=== PATIENT | female | born 1950 | race Caucasian/White ===

== ENCOUNTER 2017-09-01 08:56 | Emergency (ER) | payer MEDICARE ==
[~2017-09-01] VITALS: Ht 170.2 cm; Wt 79.8 kg
[~2017-09-01 08:56] MED LIST: ASPI-COR81 M1 PO; CHILDREN'S CHEW1 CT1 PO; ESCITALOPRAM20 MG PO; FISH OIL1000 MG PO; LOSARTAN POTAS100 MG PO; OMEPRAZOLE40 MG PO; QUETIAPINE FUM100 M2 PO; VITAMIN D1000 IU PO; XANAX 1MG TABLET1 MG PO
--- OUTSIDE RECORDS SUMMARY | 2017-09-01 09:00 | External Medical Summary Rpt | CCD ---
Demographics Preferred Language Syriac Marital Status Unknown Church Affiliation Unknown Race Unknown Ethnic Group Unknown Author Author , MARY HERNANDEZ Address Unknown Phone Immunization No patient found.
--- OUTSIDE RECORDS SUMMARY | 2017-09-01 09:00 | External Medical Summary Rpt | CCD ---
Author Author [employer] Organization [employer] Address Unknown Phone Unavailable Purpose Continuity of Care Document - through 2016
--- OUTSIDE RECORDS SUMMARY | 2017-09-01 09:00 | External Medical Summary Rpt | CCD ---
Author Author , MARY HERNANDEZ Address Unknown Phone [email or web address] Purpose Continuity of Care Document - 03-08-2017 through 2016 Results Labs Lab Lab Date Result Refere Interp Status Commen Order Detail nces retati t Range on Differential panel, method unspecified - (03-08-2017 08:38) LYMPH 58 % 10% - High complet 017 50% ed 08:38 Platele NORMAL complet ts 017 ed [Presen 08:38 ce] in Blood by Light microsc opy
--- OUTSIDE RECORDS SUMMARY | 2017-09-01 09:00 | External Medical Summary Rpt ---
Author Author [facility], MARY [employer] Organization [employer]ARY [employer] Address Unknown Phone Unavailable Results Comprehensive metabolic 2000 panel in Serum or Plasma Observa Value Referen Units Interpr Notes Date tion ce etation Range Albumin/G 1.1 - 1.8 No Normal No March 08 lobulin informati informati 2016 8:38 [Mass on in on in AM ratio] in source source Serum or data data Plasma Albumin 3.4 - 5.0 gm/dL Normal No March 08 [Mass/vol informati 2016 8:38 ume] in on in AM Serum or source Plasma data Alkaline 46 - 116 U/L High No March 08 phosphata informati 2016 8:38 se on in AM [Enzymati source c data activity/ volume] in Serum or Plasma Bilirubin 0.2 - 1.0 mg/dL Normal No March 08 .total informati 2016 8:38 [Mass/vol on in AM ume] in source Serum or data Plasma Urea 7 - 18 mg/dL High No March 08 nitrogen informati 2016 8:38 [Mass/vol on in AM ume] in source Serum or data Plasma Calcium 8.5 - mg/dL Normal No March 08 [Mass/vol 10.1 informati 2016 8:38 ume] in on in AM Serum or source Plasma data Chloride 98 - 107 mmoL/L High No March 08 [Moles/vo informati 2016 8:38 lume] in on in AM Serum or source Plasma data Carbon 21.0 - mmoL/L Normal No March 08 dioxide, 32.0 informati 2016 8:38 total on in AM [Moles/vo source lume] in data Serum or Plasma Creatinin 0.55 - mg/dL Normal No March 08 e 1.02 informati 2016 8:38 [Mass/vol on in AM ume] in source Serum or data Plasma Estimated 59- ML/MIN No REFERENCE March 08 informati RANGE: 2017 8:38 glomerula on in >60 AM r source ML/MIN/1. filtratio data 73 SQUARE n rate METERSIf (GF this patient is -A merican, then multiply theresult by 1.210. Globulin 1.3 - 3.2 gm/dL Normal No March 08 [Mass/vol informati 2016 8:38 ume] in on in AM Serum source data Glucose 74 - 106 mg/dL Normal No March 08 [Mass/vol informati 2016 8:38 ume] in on in AM Serum or source Plasma data Potassium 3.5 - 5.1 mmoL/L Normal No March 08 informati 2016 8:38 [Moles/vo on in AM lume] in source Serum or data Plasma Sodium 136 - 145 mmoL/L Normal No March 08 [Moles/vo informati 2016 8:38 lume] in on in AM Serum or source Plasma data Aspartate 15 - 37 U/L Low No March 08 informati 2016 8:38 aminotran on in AM sferase source [Enzymati data c activity/ volume] in Serum or Plasma Alanine 12 - 78 U/L Normal March 08 aminotran informati 2016 8:38 sferase on in AM [Enzymati source c data activity/ volume] in Serum or Plasma Protein 6.4 - 8.2 gm/dL Normal No March 08 [Mass/vol informati 2016 8:38 ume] in on in AM Serum or source Plasma data Lipid 1996 panel in Serum or Plasma Observa Value Referen Units Interpr Notes Date tion ce etation Range Cholester < 200 mg/dL High No March 08 ol informati 2016 8:38 [Moles/vo on in AM lume] in source Unspecifi data ed specimen Cholester 40 - 60 MG/DL Normal March 08 ol in HDL informati 2016 8:38 on in AM [Mass/vol source ume] in data Serum or Plasma Cholester 0 - 130 mg/dL High No March 08 ol in LDL informati 2016 8:38 on in AM [Mass/vol source ume] in data Serum or Plasma by calcsilver on Triglycer 30 - 200 mg/dL Normal March 08 tristan informati 2016 8:38 [Moles/vo on in AM lume] in source Serum or data Plasma Cholester 0 - 40 No Normal March 08 ol in informati informati 2016 8:38 VLDL on in on in AM [Mass/vol source source ume] in data data Serum or Plasma Thyrotropin [Units/volume] in Serum or Plasma Observa Value Referen Units Interpr Notes Date tion ce etation Range Thyrotrop 0.358 - uIU/ml High No March 08 in 3.740 informati 2016 8:38 [Units/vo on in AM lume] in source Serum or data Plasma CBC W Auto Differential panel in Blood Observa Value Referen Units Interpr Notes Date tion ce etation Range Basophils 0 - 0.2 K/MM3 Normal No March 08 informati 2016 8:38 [#/volume on in AM ] in source Blood by data Automated count Basophils 0.1 - 2.0 % Normal No March 08 / informati 2016 8:38 leukocyte on in AM s in source Blood by data Automated count Eosinophi 0.0 - 0.4 K/mm3 Normal No March 08 ls informati 2016 8:38 [#/volume on in AM ] in source Blood by data Automated count Eosinophi 0.1 - % Normal No March 08 ls/100 12.0 informati 2016 8:38 leukocyte on in AM s in source Blood by data Automated count Granulocy 1.8 - 7.8 K/mm3 Normal No March 08 doug informati 2016 8:38 [#/volume on in AM ] in source Blood by data Automated count Granulocy 37.0 - % Low No March 08 doug/100 80.0 informati 2016 8:38 leukocyte on in AM s in source Blood by data Automated count Hematocri 37.0 - % Normal No March 08 t [Volume 47.0 informati 2016 8:38 on in AM Fraction] source of Blood data Hemoglobi 12.2 - g/dL Normal No March 08 n 16.2 informati 2016 8:38 [Mass/vol on in AM ume] in source Blood data Lymphocyt 0.7 - 4.5 K/mm3 Normal No March 08 es informati 2016 8:38 [#/volume on in AM ] in source Unspecifi data ed specimen by Automated count Lymphocyt 10 - 50.0 % High No March 08 es informati 2016 8:38 [#/volume on in AM ] in source Unspecifi data ed specimen by Automated count Erythrocy 27 - 31.2 pg Normal No March 08 te mean informati 2016 8:38 corpuscul on in AM ar source hemoglobi data n [Entitic mass] Erythrocy 31.8 - g/dl Normal No March 08 te mean 35.4 informati 2016 8:38 corpuscul on in AM ar source hemoglobi data n concentra tion [Mass/vol ume] by Automated count Erythrocy 82.2 - fl Normal No March 08 te mean 97.8 informati 2016 8:38 corpuscul on in AM ar volume source [Entitic data volume] by Automated count Monocytes 0.1 - 1.0 K/mm3 Normal No March 08 informati 2016 8:38 [#/volume on in AM ] in source Blood by data Automated count Monocytes 1.7 - 9.3 % Normal No March 08 informati 2016 8:38 leukocyte on in AM s in source Blood by data Automated count Platelet 7.4 - fl Low No March 08 mean 10.4 informati 2016 8:38 volume on in AM [Entitic source volume] data in Blood by Automated count Platelets 142 - 424 K/mm3 Normal No March 08 informati 2016 8:38 [#/volume on in AM ] in source Blood data Erythrocy 4.2 - 5.4 M/mm3 Normal No March 08 doug informati 2016 8:38 [#/volume on in AM ] in source Amniotic data fluid Erythrocy 11.5 - % Normal No March 08 te 17.5 informati 2016 8:38 distribut on in AM ion width source [Entitic data volume] by Automated count Leukocyte 4.8 - K/MM3 Normal No March 08 s 10.8 informati 2016 8:38 [#/volume on in AM ] in source Blood data Differential panel, method unspecified - Observa Value Referen Units Interpr Notes Date tion ce etation Range Neutrophi 0 - 8 % Normal No March 08 ls.band informati 2016 8:38 form/100 on in AM leukocyte source s in data Blood by Automated count Basophils 0 - 1 % Normal No March 08 informati 2016 8:38 leukocyte on in AM s in source Blood by data Automated count Eosinophi 0 - 3 % High No March 08 ls/100 informati 2016 8:38 leukocyte on in AM s in source Blood by data Manual count LYMPH 58 10 - 50 % High No March 08 inform2016 tion in 8:38 AM source data Monocytes 2 - 9 % Normal No March 08 informati 2016 8:38 leukocyte on in AM s in source Blood by data Automated count Platele NORMAL No No No March 08 ts informa informa informa informa 2017 [Presen tion in tion in tion in tion in 8:38 AM ce] in source source source source Blood data data data data by Light microsc opy Neutrophi 42 - 76 % Low No March 08 ls informati 2016 8:38 [#/volume on in AM ] in source Blood by data Automated count Cells No #CELLS No No March 08 Counted informati informati informati 2016 8:38 Total [#] on in on in on in AM in Blood source source source data data data Thyroxine (T4) free [Mass/volume] in Serum or Plasma Observa Value Referen Units Interpr Notes Date tion ce etation Range Thyroxine 0.76 - ng/dL Normal No March 08 (T4) 1.46 informati 2016 8:37 free on in AM [Mass/vol source ume] in data Serum or Plasma
--- OUTSIDE RECORDS SUMMARY | 2017-09-01 09:00 | External Medical Summary Rpt | CCD ---
Demographics Preferred Language Lithuanian Marital Status Unknown Faith Affiliation Unknown Race Unknown Ethnic Group Unknown Author Author , MARY HERNANDEZ Address Unknown Phone Immunization No patient found.
--- OUTSIDE RECORDS SUMMARY | 2017-09-01 09:00 | External Medical Summary Rpt | CCD ---
Author Author , MARY HERNANDEZ Address Unknown Phone [email or web address] Purpose Continuity of Care Document - 03-08-2017 [...]
[2017-09-01] MEDS ORDERED: PENICILLIN-VK500 MG PO (09:31)
--- NOTE | 2017-09-01 09:33 | Urgent Treatment Center Report ---
History of Present Issue Date/Time Seen by Provider 09/01/17 09 Visit Reason Pt arrived:Walked Presenting Problem:DENTAL PAIN Location if Accident: Onset of symptoms date/time:/ or onset unknown for:MEDICAL HX UNKNOWN Have you (or family members/close friends) recently traveled outside the [place]? N If Yes, where/when: Have you had exposure to infectious disease within the past month? TB? Other? Specify: Patient state that she has had a bad tooth for several months State that a couple of days ago it broke and now she is having pain and swelling and thinks it may be abcessed State that she is having pain and swelling. State that it is the weekend and she doesn't think she can get in to a dentist ALLERGIES Coded Allergies: Sulfa (Sulfonamide Antibiotics) (12/29/16) atropine (12/29/16) ciprofloxacin (From CIPRO) (12/29/16) Home Medications Reported Medications Losartan Potassium (Losartan 100MG) 100 MG PO DAILY #30 Omeprazole (Omeprazole 40MG) 40 MG PO DAILY #30 Aspirin (Aspi-Cor) 81 MG PO DAILY CHOLECALCIFEROL (VITAMIN D3) (Vitamin D3) 2,000 IUNITS PO DAILY PEDIATRIC MULTIVIT COMB NO.28 (Child Multivitamins) 1 CTB PO DAILY Escitalopram Oxalate 20 MG PO DAILY #30 Quetiapine Fumarate 100 MG PO NIGHTLY #30 History Medical History General CAD? No Angina: No OR: No Hypertension? Yes Hyperlipidemia? Yes CHF? No DVT? No PE? No COPD? No Asthma? No Anemia? No GERD? Yes Gastric ulcers? No GI Bleed? No Hernia? No Thyroid Problems? Yes Hypothyroidism? Yes CVA? No Seizures? No Diabetes? No Renal Insuffiency? No UTI? No Stones? No GB Disease: No Nephritic Syndrome? No Asplenia? No Hepatitis? No Sickle Cell Disease? No Arthritis? Yes Migraines? No Cataracts? No Glaucoma? No MRSA? No HIV? No TB? No Anxiety? Yes Depression? Yes Cancer? No Immunization HX DT/Tetanus < 1 Year Ago Surgical Hx Previous Surgery?Y EYE LID DEVIATED SEPTUM TONSILLS Back Surgery Social History Smoking Hx Smoker: Never Smoker Tobacco: No Alcohol Alcohol: No Review of Systems All Other Systems Reviewed and Negative ENT dental caries. Physical Exam Vital Signs Vital Signs Date Time Temp Pulse Resp B/P Pulse O2 O2 Flow FiO2 Ox Delivery Rate 09/01 917 98.1 68 18 147/66 99 General Appearance normal appearance, WD/WN, no apparent distress Ear, Nose, Throat Dental pain, redness and swelling in the gum like that seen with dental abcess, several broken teeth Respiratory Status Yes: trachea midline, chest symmetrical. No: respiratory distress. Lung Sounds bilateral: normal breath sounds, lungs clear. Cardiovascular normal exam, regular rate/rhythm, no peripheral edema Neurologic alert, normal exam, oriented x 3 Medical Decision Making LABS/Meds/Orders Pt receiving controlled substance in ED? No Results/Orders Current Medication Orders Sig/Gustavo Start time Last Medication Dose Route Stop Time Status Admin Lidocaine HCl 15 ML ONCE ONE 09/01 930 DC 09/01 TP 09/01 Lidocaine HCl 0 .STK-MED ONE 09/01 927 DC .ROUTE Orders Procedure Date/time Status [facility] DENTAL BALL 09/01 922 Active Departure Departure Time of Disposition 921 Disposition DC Home or Self Care(routine) Clinical Impression Primary Impression: Dental abscess Condition STABLE Referrals [facility]LIT[facility] GÓMEZ Patient Instructions DI for Dental Pain, Tooth Abscess Additional Instructions Follow up with dentist inge Take medication as prescribed Return if needed Use dental balls as advised in [facility] today Discharge Counseling Counseled pt/family regarding diagnosis, medications/RX, home care, follow up needs Prescriptions Current Visit Scripts Penicillin V Potassium 500 MG PO Q6 #28 TAB 500mg every 6hours for 7 days at 0932
--- NOTE | 2017-09-01 09:33 | Urgent Treatment Center Report ---
History of Present Issue Date/Time Seen by Provider 09/01/17 09 Visit Reason Pt arrived:Walked Presenting Problem:DENTAL PAIN Location if Accident: Onset of symptoms date/time:/ or onset unknown for:MEDICAL HX UNKNOWN Have you (or family members/close friends) recently traveled outside the [place]? N If Yes, where/when: Have you had exposure to infectious disease within the past month? TB? Other? Specify: Patient state that she has had a bad tooth for several months State that a couple of days ago it broke and now she is having pain and swelling and thinks it may be abcessed State that she is having pain and swelling. State that it is the weekend and she doesn't think she can get in to a dentist ALLERGIES Coded Allergies: Sulfa (Sulfonamide Antibiotics) (12/29/16) atropine (12/29/16) ciprofloxacin (From CIPRO) (12/29/16) Home Medications Reported Medications Losartan Potassium (Losartan 100MG) 100 MG PO DAILY #30 Omeprazole (Omeprazole 40MG) 40 MG PO DAILY #30 Aspirin (Aspi-Cor) 81 MG PO DAILY CHOLECALCIFEROL (VITAMIN D3) (Vitamin D3) 2,000 IUNITS PO DAILY PEDIATRIC MULTIVIT COMB NO.28 (Child Multivitamins) 1 CTB PO DAILY Escitalopram Oxalate 20 MG PO DAILY #30 Quetiapine Fumarate 100 MG PO NIGHTLY #30 History Medical History General CAD? No Angina: No IA: No Hypertension? Yes Hyperlipidemia? Yes CHF? No DVT? No PE? No COPD? No Asthma? No Anemia? No GERD? Yes Gastric ulcers? No GI Bleed? No Hernia? No Thyroid Problems? Yes Hypothyroidism? Yes CVA? No Seizures? No Diabetes? No Renal Insuffiency? No UTI? No Stones? No GB Disease: No Nephritic Syndrome? No Asplenia? No Hepatitis? No Sickle Cell Disease? No Arthritis? Yes Migraines? No Cataracts? No Glaucoma? No MRSA? No HIV? No TB? No Anxiety? Yes Depression? Yes Cancer? No Immunization HX DT/Tetanus < 1 Year Ago Surgical Hx Previous Surgery?Y EYE LID DEVIATED SEPTUM TONSILLS Back Surgery Social History Smoking Hx Smoker: Never Smoker Tobacco: No Alcohol Alcohol: No Review of Systems All Other Systems Reviewed and Negative ENT dental caries. Physical Exam Vital Signs Vital Signs Date Time Temp Pulse Resp B/P Pulse O2 O2 Flow FiO2 Ox Delivery Rate 09/01 917 98.1 68 18 147/66 99 General Appearance normal appearance, WD/WN, no apparent distress Ear, Nose, Throat Dental pain, redness and swelling in the gum like that seen with dental abcess, several broken teeth Respiratory Status Yes: trachea midline, chest symmetrical. No: respiratory distress. Lung Sounds bilateral: normal breath sounds, lungs clear. Cardiovascular normal exam, regular rate/rhythm, no peripheral edema Neurologic alert, normal exam, oriented x 3 Medical Decision Making LABS/Meds/Orders Pt receiving controlled substance in ED? No Results/Orders Current Medication Orders Sig/Gustavo Start time Last Medication Dose Route Stop Time Status Admin Lidocaine HCl 15 ML ONCE ONE 09/01 930 DC 09/01 TP 09/01 Lidocaine HCl 0 .STK-MED ONE 09/01 927 DC .ROUTE Orders Procedure Date/time Status [facility] DENTAL BALL 09/01 922 Active Departure Departure Time of Disposition 921 Disposition DC Home or Self Care(routine) Clinical Impression Primary Impression: Dental abscess Condition STABLE Referrals [facility] GÓMEZ Patient Instructions DI for Dental Pain, Tooth Abscess Additional Instructions Follow up with dentist inge Take medication as prescribed Return if needed Use dental balls as advised in [facility] today Discharge Counseling Counseled pt/family regarding diagnosis, medications/RX, home care, follow up needs Prescriptions Current Visit Scripts Penicillin V Potassium 500 MG PO Q6 #28 TAB 500mg every 6hours for 7 days at 0932
[2017-09-01 09:34] VITALS: BP 147/66
== END 2017-09-01 09:37 | disposition home or self-care (01) ==
LOC: UTC 08:56
DX: K05.212 Aggressive periodontitis, localized, moderate (principal); I10 Essential (primary) hypertension; K21.9 Gastro-esophageal reflux disease without esophagitis; E03.9 Hypothyroidism, unspecified; F41.8 Other specified anxiety disorders; Z88.2 Allergy status to sulfonamides